=== PATIENT | female | born 1975 | race Caucasian/White ===

== ENCOUNTER → 2017-12-03 | Outpatient (CLI) | payer BC | LOC: HPND 12:21 | PROVIDERS: ATTEND Obstetrics & Gynecology | DX: O09.521 Supervision of elderly multigravida, first trimester (principal); Z36.82 Encounter for antenatal screening for nuchal translucency | CPT/HCPCS: 36415; 76813 ==

== ENCOUNTER → 2017-12-31 | Outpatient (CLI) | payer BC | LOC: HPND 10:41 | PROVIDERS: ATTEND Obstetrics & Gynecology | DX: O09.522 Supervision of elderly multigravida, second trimester (principal) | CPT/HCPCS: 76811 ==

== ENCOUNTER → 2018-02-05 | Outpatient (CLI) | payer BC | LOC: HPND 09:12 | PROVIDERS: ATTEND Obstetrics & Gynecology | DX: O09.522 Supervision of elderly multigravida, second trimester (principal) | CPT/HCPCS: 76816 ==

== ENCOUNTER 2018-05-27 14:15 | Inpatient (IN) ==
[2018-05-27] MEDS ORDERED: ceFAZolin 2 GM Premix Inj 2 GM/50 ML PIGGYBACK IV.SIG PRN (14:49)
--- NOTE | 2018-05-27 14:56 | P.HPOB ---
History of Present Illness Service: obstetrics Primary Care Physician: No Primary Care Physician History of Present Illness: 42 yo who is 38 weeks with BP 160/100 x2 in office scheduled for CS nest week recommend repeat CS today for hypertension Para: 1 : 2 - Inpatient Certification I certify that the inpatient services were ordered in accordance with Medicare regulations governing the order. This includes certification that hospital inpatient services are reasonable and necessary and in the case of services not specified as inpatient-only under 42 CFR 419.22(n), that they are appropriately provided as inpatient services in accordance to with the 2-midnight benchmark under 43 CFR 412.3(e) Estimated Total Length of Stay (Days): 2 Plans for Post Hospital Care: Home Review of Systems All other systems reviewed negative except as stated in HPI PMFSH - History History Provided By: Patient - Medical History Medical History: Medical History (Last Updated 05/27/18 @ 14:54 by Shun Urias MD) delivery delivered DVT (deep vein thrombosis) in - Social History I have reviewed the patient's Social History: Yes - Tobacco History Smoking Status: Never smoker Medications and Allergies Allergies Allergy/AdvReac Type Severity Reaction Status Date / Time No Known Allergies Allergy Verified 05/20/18 13:16 Home Medications Medication Instructions Recorded Confirmed Type aspirin 81 mg PO DAILY 05/20/18 05/27/18 History vit [id number] 1 tab PO DAILY 05/20/18 05/27/18 History [ Vitamin] ranitidine HCl [Zantac] 150 mg PO DAILY PRN 05/20/18 05/27/18 History Exam Vital signs: Intake & Output 05/26/18 05/27/18 05/27/18 18:59 06:59 18:59 Weight 86.636 kg - Constitutional no acute distress - Routine HEENT Exam Head: Present: normocephalic - Routine Neck Exam Present: supple - Routine Respiratory Exam Present: CTA bilaterally - Routine Cardiovascular Exam Present: RRR - Routine Abdominal Exam Present: soft, normoactive bowel sounds, tenderness - Routine Extremities Exam Present: full ROM - Routine Skin Exam Present: intact Caprini VTE Risk Assessment Caprini VTE Risk Assessment: No/Low Risk (score <= 1) Caprini Risk Assessment Model: Point Value = 1 Point Value = 2 Point Value = 3 Point Value = 5 Age 41-60 Minor surgery BMI > 25 kg/m2 Swollen legs Varicose veins or History of unexplained or recurrent spontaneous Oral contraceptives or hormone replacement Sepsis (< 1 month) Serious lung disease, including pneumonia (< 1 month) Abnormal pulmonary function Acute myocardial infarction Congestive heart failure (< 1 month) History of inflammatory bowel disease Medical patient at bed rest Age 61-74 Arthroscopic surgery Major open surgery (> 45 min) Laparoscopic surgery (> 45 min) Malignancy Confined to bed (> 72 hours) Immobilizing plaster cast Central venous access Age >= 75 History of VTE Family history of VTE Factor V Leiden Prothrombin [id number] Lupus anticoagulant Anticardiolipin antibodies Elevated serum homocysteine Heparin-induced thrombocytopenia Other congenital or acquired thrombophilia Stroke (< 1 month) Elective arthroplasty Hip, pelvis, or leg fracture Acute spinal cord injury (< 1 month) Prophylaxis Regimen: Total Risk Factor Score Risk Level Prophylaxis Regimen 0-1 Low Early ambulation 2 Moderate Order ONE of the following: *Sequential Compression Device (SCD) *Heparin 5000 units SQ BID 3-4 Higher Order ONE of the following medications: *Heparin 5000 units SQ TID *Enoxaparin/Lovenox 40 mg SQ daily (WT < 150 kg, CrCl > 30 mL/min) *Enoxaparin/Lovenox 30 mg SQ daily (WT < 150 kg, CrCl > 10-29 mL/min) *Enoxaparin/Lovenox 30 mg SQ BID (WT < 150 kg, CrCl > 30 mL/min) AND/OR *Sequential Compression Device (SCD) 5 or more Highest Order ONE of the following medications: *Heparin 5000 units SQ TID (Preferred with Epidurals) *Enoxaparin/Lovenox 40 mg SQ daily (WT < 150 kg, CrCl > 30 mL/min) *Enoxaparin/Lovenox 30 mg SQ daily (WT < 150 kg, CrCl > 10-29 mL/min) *Enoxaparin/Lovenox 30 mg SQ BID (WT < 150 kg, CrCl > 30 mL/min) AND *Sequential Compression Device (SCD) Assessment and Plan - Diagnosis (1) 38 weeks gestation of Code(s): Z3A.38 - 38 weeks gestation of Status: Acute (2) Hypertension affecting in third trimester Code(s): O16.3 - Unspecified maternal hypertension, third trimester Status: Acute - Plan for CS today
[2018-05-27] MEDS ORDERED: Citric Acid/Sodium Citrate Liq 30 ML UDC PO SCH (15:00)
[2018-05-27] MEDS ORDERED: Citric Acid/Sodium Citrate Liq 30 ML UDC ONE (15:03)
[2018-05-27 15:17] LABS: Baso % (Auto) 0.5 % (0.0-2.0); Eos # (Auto) 0.1 th/mm3 (0.0-0.4); Eos % (Auto) 1.7 % (0.0-4.0); Hematocrit 34.9 % (35.0-46.0); Hemoglobin 11.6 gm/dL (11.6-15.3); Lymph # (Auto) 0.8 th/mm3 (1.0-4.8); Lymph % (Auto) 12.4 % (9.0-44.0); Mean Corpuscular HGB Conc 33.4 % (32.0-36.0); Mean Corpuscular Hemoglobin 28.8 pg (27.0-34.0); Mean Corpuscular Volume 86.2 fL (80.0-100.0); Mean Platelet Volume 9.9 fL (7.0-11.0); Mono # (Auto) 0.4 th/mm3 (0.0-0.9); Mono % (Auto) 5.7 % (0.0-8.0); Neut # (Auto) 5.3 th/mm3 (1.8-7.7); Neut % (Auto) 79.7 % (16.0-70.0); Platelet Count 236 th/mm3 (150-450); Red Blood Count 4.04 mil/mm3 (4.00-5.30); Red Cell Distribution Width 12.7 % (11.6-17.2); White Blood Count 6.6 th/mm3 (4.0-11.0)
[2018-05-27 15:28] LABS: Amphetamine Screen,Urine Neg (Neg); Barbiturate Screen,Urine Neg (Neg); Cannabinoid Screen,Urine Neg (Neg); Cocaine Screen,Urine Neg (Neg)
[2018-05-27 15:30] LABS: Bacteria,Urine Few /hpf; Bilirubin,Urine Negative (Negative); Clarity,Urine Cloudy (Clear); Color,Urine Yellow (Yellw/Straw); Glucose,Urine (UA) Negative (Negative); Leukocyte Esterase,Urine Negative (Negative); Mucus,Urine Few /lpf (Occasional); Nitrite,Urine Negative (Negative); Specific Gravity,Urine 1.012 (1.002-1.035); Squamous Epithelial Cell,Urine 30 /hpf (0-5)
[2018-05-27 15:35] LABS: Albumin 2.8 g/dL (3.4-5.0); Anion Gap 10 meq/L (5-15); Aspartate Aminotransferase 27 U/L (15-37); Blood Urea Nitrogen 6 mg/dL (7-18); Calcium 8.8 mg/dL (8.5-10.1); Carbon Dioxide 21.6 meq/L (21.0-32.0); Chloride 107 meq/L (98-107); Glomerular Filtration Rate Greater Than 89 mL/min (>89); Glucose,Random 70 mg/dL (74-106); Potassium 3.7 meq/L (3.5-5.1); Sodium 139 meq/L (136-145); Uric Acid 3.9 mg/dl (2.6-6.0)
[2018-05-27 15:38] LABS: Alanine Aminotransferase 29 U/L (10-53); Alkaline Phosphatase 151 U/L (45-117); Total Protein 7.2 g/dL (6.4-8.2)
[2018-05-27 15:54] LABS: Opiate Screen,Urine Neg (Neg)
[2018-05-27] MEDS ORDERED: Morphine Sulfate PF Inj 5 MG/10 ML Ampul ONE (16:20)
--- NOTE | 2018-05-27 17:54 | P.OBDELI ---
Procedure Note - Pre Op Diagnosis (1) 38 weeks gestation of (2) Hypertension affecting in third trimester - Post Op Diagnosis (1) delivery due to maternal disorder (2) 38 weeks gestation of (3) Hypertension affecting in third trimester Performed by: Shun Urias MD assisted by saundra REED PGY2 Procedure: Repeat Low Transverse Section Indication for Delivery: Desired elective repeat , Maternal medical problems (BP 160/100) Informed Consent Obtained: For anesthesia, For procedure Confirmed Correct: Patient, Procedure, Time-out taken Anesthesia: Spinal Monitoring During Procedure: Blood pressure monitoring Urinary Catheter: Inserted using sterile technique, To dependent drainage Sterile Preparation: In usual fashion Position: Supine with wedge to left side - Operative Features Skin Incision: Pfannenstiel Uterine Incision: Low transverse w/knife / blunt ext Membranes Ruptured: Artificially Presentation: Occiput anterior Status of Infant: Viable, Nursery present Placenta Delivered: Intact Medications: Antibiotics Estimated blood loss (mL): 500 Procedure Tolerated: Well Maternal Condition: Stable Baby Condition: Stable Procedure in Detail: Taken to the operating room identified by name band and verbally and given a spinal anesthetic. She was prepped and draped in the usual sterile manner for a section. A time out was taken. The old incision was excised sharply and the Pfannenstiel incision was made and carried down to the fascia the fascia was nicked bilaterally and the fascia was taken off the rectus muscle by blunt and sharp dissection. The rectus muscles were spread bluntly and the peritoneum was entered under direct vision. The incision was extended with care to avoid the urinary bladder. A bladder blade was placed and a bladder flap was created in the usual fashion. The lower uterine segment was then incised sharply in a transverse manner and taken down in the midline until the uterine cavity was entered. The incision was extended with the surgeon's fingers. The vertex was grasped and with fundal pressure the vertex was delivered without difficulty hypopharynx and nasopharynx were suctioned and the remainder of the delivered without difficulty. The cord clamping was delayed 45 seconds and then the cord was clamped cut and the was handed over to the resuscitation team cord blood was obtained the placenta was removed manually and the uterus was curettaged twice with a wet lap. The uterus was delivered from the abdomen. The uterine incision was repaired with 0 chromic in a running fashion in 2 layers the second layer imbricating the first. The cul-de-sac and gutters were cleaned of blood and debris the uterus was delivered back into the abdomen. The rectus muscles were reapproximated with 0 Vicryl in a running the fascia was repaired with 0 Vicryl from lateral to midline bilaterally. The skin was closed with a 4-0 Monocryl in a subcuticular manner. Patient tolerated the procedure well and went to recovery room in good condition.
[2018-05-27] MEDS ORDERED: Simethicone 80 MG Chew Tablet PO PRN (17:55)
[2018-05-27] MEDS ORDERED: Oxytocin 30 Units/500ml Premix 30 UNITS/500 ML BAG IV.SIG ONE (17:55)
[2018-05-27] MEDS ORDERED: Labetalol HCl Inj 100 MG/20 ML Vial IV.PUSH PRN ×3 (17:58→18:19)
[2018-05-27] MEDS ORDERED: Oxytocin 30 Units/500ml Premix 30 UNITS/500 ML BAG IV.SIG PRN (22:55)
[2018-05-28 05:54] LABS: Baso % (Auto) 0.2 % (0.0-2.0); Hematocrit 31.5 % (35.0-46.0); Hemoglobin 10.4 gm/dL (11.6-15.3); Lymph # (Auto) 0.6 th/mm3 (1.0-4.8); Lymph % (Auto) 4.7 % (9.0-44.0); Mean Corpuscular HGB Conc 32.9 % (32.0-36.0); Mean Corpuscular Volume 88.1 fL (80.0-100.0); Mean Platelet Volume 9.6 fL (7.0-11.0); Mono # (Auto) 0.8 th/mm3 (0.0-0.9); Mono % (Auto) 6.4 % (0.0-8.0); Neut # (Auto) 10.7 th/mm3 (1.8-7.7); Neut % (Auto) 88.7 % (16.0-70.0); Platelet Count 196 th/mm3 (150-450); Red Blood Count 3.58 mil/mm3 (4.00-5.30); Red Cell Distribution Width 13.1 % (11.6-17.2); White Blood Count 12.1 th/mm3 (4.0-11.0)
--- NOTE | 2018-05-28 08:20 | P.PNOB ---
Subjective Post day: 1 Interval history: doing well pod #1 wants regular diet Objective Vital Signs/I&O: Vital Signs 05/27/18 14:45 05/27/18 14:55 05/27/18 16:14 Temperature 98.4 F Pulse Rate 90 87 91 H Respiratory Rate 18 Blood Pressure 149/88 H 163/86 H 05/27/18 16:40 05/27/18 17:50 05/27/18 18:03 Temperature 97.7 F Pulse Rate 101 H 78 79 Respiratory Rate 18 16 Blood Pressure 133/78 138/81 05/27/18 18:16 05/27/18 18:33 05/27/18 18:46 Temperature Pulse Rate 70 63 65 Respiratory Rate 16 16 18 Blood Pressure 134/67 154/86 H 155/86 H 05/27/18 18:50 05/27/18 19:08 05/27/18 19:26 Temperature 97.7 F 98.1 F Pulse Rate 68 Respiratory Rate 20 Blood Pressure 156/88 H 05/27/18 19:50 05/27/18 21:10 05/27/18 21:25 Temperature 97.6 F Pulse Rate 57 L 73 95 H Respiratory Rate 18 18 Blood Pressure 162/84 H 180/98 H 165/92 H 05/27/18 21:33 05/27/18 23:00 05/27/18 23:20 Temperature Pulse Rate 77 62 Respiratory Rate 18 Blood Pressure 138/77 162/84 H 164/86 H 05/27/18 23:44 05/28/18 01:12 05/28/18 04:10 Temperature 98.0 F 98.4 F Pulse Rate 68 73 90 Respiratory Rate 16 18 Blood Pressure 154/87 H 131/80 129/72 Intake & Output 05/27/18 05/28/18 05/28/18 18:59 06:59 18:59 Weight 87 kg Other: Weight On Admission 87 kg Result Diagrams: 05/28/18 05:27 05/27/18 14:35 Objective Remarks: GENERAL: Well-nourished, well-developed patient. CARDIOVASCULAR: Regular rate and rhythm without murmurs, gallops, or rubs. RESPIRATORY: Breath sounds equal bilaterally. No accessory muscle use. ABDOMEN/GI: Abdomen soft, non-tender. Fundus: Firm, non-tender at umbilicus. GENITOURINARY: Light to moderate bleeding. EXTREMITIES: No cyanosis or edema, non-tender, without signs of DVT. Medications and IVs: Active Medications Aspirin (Ecotrin) 81 mg PO DAILY [facility] Diphtheria/Pertussis/Tetanus Vacc (Boostrix Vaccine Inj) 0.5 ml IM .ONCE ONE Stop: 05/28/18 16:01 Lactated Ringer's (Lr 1000 Ml Inj) 1,000 mls @ 100 mls/hr IV.CONT .Q10H [facility] Stop: 05/28/18 18:54 Oxytocin (Pitocin 30 Units/Ns 500 Ml Premix) 30 units in 500 mls @ 100 mls/hr IV.SIG PRN PRN PRN Reason: Heavy bleeding Stop: 05/28/18 22:54 Lactated Ringer's (Lr 1000 Ml Inj) 1,000 mls @ 75 mls/hr IV.CONT .[id number] [facility] Ibuprofen (Motrin) 600 mg PO Q6HR PRN PRN Reason: cramping Ketorolac Tromethamine (Toradol Inj) 30 mg IM Q6H PRN PRN Reason: SEE LABEL COMMENTS Stop: 06/01/18 17:54 Labetalol HCl (Trandate Inj) 40 mg IV.PUSH NOW PRN PRN Reason: SEE LABEL COMMENTS Labetalol HCl (Trandate Inj) 80 mg IV.PUSH NOW PRN PRN Reason: SEE LABEL COMMENTS Measles/Mumps/Rubella Vaccine Live (M-M-R Ii Vaccine Inj) 0.5 ml SQ .ONCE ONE Stop: 05/28/18 16:01 Ondansetron HCl (Zofran Inj) 4 mg IV.PUSH Q6H PRN PRN Reason: NAUSEA OR VOMITING Last Admin: 05/27/18 21:27 Dose: 4 mg Oxycodone/Acetaminophen (Percocet 5/325 Mg) 1 tab PO Q4H PRN PRN Reason: PAIN SCALE 3 TO 5 Oxycodone/Acetaminophen (Percocet 5/325 Mg) 2 tab PO Q4H PRN PRN Reason: PAIN SCALE 6 TO 10 Simethicone (Mylicon Chew) 80 mg PO QID PRN PRN Reason: FLATULENCE Sodium Chloride (Ns Flush) 2 ml IV.FLUSH BID [facility] Sodium Chloride (Ns Flush) 2 ml IV.FLUSH PRN PRN PRN Reason: FLUSH AFTER USING IV ACCESS Assessment and Plan - Diagnosis (1) delivery due to maternal disorder Status: Acute - Plan doing well post op one dose labetalol
[2018-05-28 08:45] VITALS: O2SAT 96
[2018-05-28] MEDS ORDERED: Measles/Mumps/Rubella Vaccine Inj 0.5 ML Vial SQ ONE (16:00)
[2018-05-28] MEDS ORDERED: Diphtheria/Tetanus/Pertussis Vaccine Inj 0.5 ML Syringe IM ONE (16:00)
[2018-05-28] MEDS: Ibuprofen 600 MG Tablet PO PRN (23:49)
[2018-05-29 07:38] VITALS: BP 135/78; PULSE 84
[2018-05-29 07:39] VITALS: RESP 20; TEMP 97.9
--- NOTE | 2018-05-29 08:05 | P.PNOB ---
Subjective Post day: 2 Interval history: doing well, Post op Objective Vital Signs/I&O: Vital Signs 05/28/18 08:43 05/28/18 12:59 05/28/18 21:10 Temperature 98 F 97.8 F 98.1 F Pulse Rate 70 89 83 Respiratory Rate 24 22 18 Blood Pressure 140/76 119/73 144/91 H Pulse Oximetry 96 96 05/29/18 02:10 05/29/18 06:10 05/29/18 07:37 Temperature 99.0 F 97.9 F Pulse Rate 68 80 84 Respiratory Rate 16 20 Blood Pressure 156/93 H 123/81 135/78 Pulse Oximetry Result Diagrams: 05/28/18 05:27 05/27/18 14:35 Objective Remarks: GENERAL: Well-nourished, well-developed patient. CARDIOVASCULAR: Regular rate and rhythm without murmurs, gallops, or rubs. RESPIRATORY: Breath sounds equal bilaterally. No accessory muscle use. ABDOMEN/GI: Abdomen soft, non-tender. Fundus: Firm, non-tender at umbilicus. GENITOURINARY: Light to moderate bleeding. EXTREMITIES: No cyanosis or edema, non-tender, without signs of DVT. Medications and IVs: Active Medications Aspirin (Ecotrin) 81 mg PO DAILY [facility] Last Admin: 05/28/18 09:23 Dose: 81 mg Lactated Ringer's (Lr 1000 Ml Inj) 1,000 mls @ 75 mls/hr IV.CONT .[id number] [facility] Ibuprofen (Motrin) 600 mg PO Q6HR PRN PRN Reason: cramping Last Admin: 05/28/18 23:49 Dose: 600 mg Ketorolac Tromethamine (Toradol Inj) 30 mg IM Q6H PRN PRN Reason: SEE LABEL COMMENTS Stop: 06/01/18 17:54 Labetalol HCl (Trandate Inj) 40 mg IV.PUSH NOW PRN PRN Reason: SEE LABEL COMMENTS Labetalol HCl (Trandate Inj) 80 mg IV.PUSH NOW PRN PRN Reason: SEE LABEL COMMENTS Ondansetron HCl (Zofran Inj) 4 mg IV.PUSH Q6H PRN PRN Reason: NAUSEA OR VOMITING Last Admin: 05/27/18 21:27 Dose: 4 mg Oxycodone/Acetaminophen (Percocet 5/325 Mg) 1 tab PO Q4H PRN PRN Reason: PAIN SCALE 3 TO 5 Last Admin: 05/28/18 09:22 Dose: 1 tab Oxycodone/Acetaminophen (Percocet 5/325 Mg) 2 tab PO Q4H PRN PRN Reason: PAIN SCALE 6 TO 10 Last Admin: 05/29/18 02:03 Dose: 2 tab Simethicone (Mylicon Chew) 80 mg PO QID PRN PRN Reason: FLATULENCE Sodium Chloride (Ns Flush) 2 ml IV.FLUSH BID [facility] Sodium Chloride (Ns Flush) 2 ml IV.FLUSH PRN PRN PRN Reason: FLUSH AFTER USING IV ACCESS Assessment and Plan - Diagnosis (1) delivery due to maternal disorder Status: Acute - Plan doing well post op ambulating and eating well
--- NOTE | 2018-05-29 08:10 | P.DS ---
Date of admission: 05/27/18 14:15 Primary care physician: Lillian Primary Care Physician Brief History from admission: 42 yo who is 38 weeks with BP 160/100 x2 in office scheduled for CS nest week recommend repeat CS today for hypertension. Pt had CS and Bp have improved DS: Diagnosis - Discharge Diagnosis (1) delivery due to maternal disorder Status: Acute DS: Medications - Discharge Medications Prescriptions: oxycodone-acetaminophen 2 tab PO Q4H PRN 3 Days #24 tab PRN Reason: Pain Scale 6 To 10 DS: Summary Hospital Course: doing well, post op day 2 wants to DC home - Time Spent with Patient Total time spent providing and/or coordinating discharge services: Less than 30 minutes Exam Vital signs: Vital Signs 05/28/18 08:43 05/28/18 12:59 05/28/18 21:10 Temperature 98 F 97.8 F 98.1 F Pulse Rate 70 89 83 Respiratory Rate 24 22 18 Blood Pressure 140/76 119/73 144/91 H Pulse Oximetry 96 96 05/29/18 02:10 05/29/18 06:10 05/29/18 07:37 Temperature 99.0 F 97.9 F Pulse Rate 68 80 84 Respiratory Rate 16 20 Blood Pressure 156/93 H 123/81 135/78 Pulse Oximetry - Constitutional no acute distress - Routine Cardiovascular Exam Present: RRR - Routine Abdominal Exam Present: soft, normoactive bowel sounds - Routine Extremities Exam Present: full ROM - Routine Neurological Exam Present: oriented X3 Results Procedures completed during hospitalization: section Discharge Plan - Discharge Disposition Patient Disposition: 01 Discharge Home - Discharge Condition Condition: Good - Discharge Order Discharge Orders: Discharge Order (Routine); Ordered 05/29/18 Ordered By: Shun Urias - Physicians Team Primary Care Provider: Primary Care [facility] Attending Provider: Shun Urias - Rxs /Orders / Referrals /Forms Prescriptions: New oxycodone-acetaminophen 5-325 mg Tablet 2 tab PO Q4H PRN (Reason: Pain Scale 6 To 10) 3 Days Qty: 24 RF: 0 Continue aspirin 81 mg Tablet,Chewable 81 mg PO DAILY vit [id number] [ Vitamin] 27 mg iron- 800 mcg Tablet 1 tab PO DAILY No Action ranitidine HCl [Zantac] 150 mg Tablet 150 mg PO DAILY PRN (Reason: Heartburn) Referrals: Shun Urias MD [Physician] - See Instructions (follow up 2 weeks) [facility] Care Lillian [facility] [Primary Care Provider] - See Instructions - Post Discharge Care Plan Care Plan Goals: Congratulations on your new baby! We want your recovery to be easley and trouble free. Please Report the Following Symptoms to Your Doctor: -Temperature above 100.5 degrees -Redness of incision or excessive or foul smelling drainage -Unusual pain or calf pain -Increased vaginal bleeding -Painful or difficulty urinating -Feelings of extreme sadness or anxiety Goals to Promote Your Health * To prevent worsening of your condition and complications * To maintain your health at the optimal level Directions to Meet Your Goals Take your medications as prescribed Follow your dietary instruction Follow activity as directed Ensure plenty of rest for recovery Drink fluids for hydration Keep your appointments as scheduled Take your immunizations and boosters as scheduled If your symptoms worsen call your OB Physician, or go to an Urgent Care Center or Emergency Room Smoking is Dangerous to your health. Avoid second hand smoke Call the 24-hour crisis hotline for domestic abuse at
[2018-05-29] MEDS: Ibuprofen 600 MG Tablet PO PRN (08:55)
== END 2018-05-29 14:09 | disposition home or self-care (01) ==
LOC: H2E 14:15 → H1EA 19:37
PROVIDERS: ADMIT Obstetrics & Gynecology; ATTEND Obstetrics & Gynecology